=== PATIENT | male | born 1950 | race Caucasian/White ===

== ENCOUNTER 2024-07-11 21:12 | Emergency (ER) | payer MEDICARE, BC | END 2024-07-11 22:15 | disposition home or self-care (01) | LOC: LL.ED 21:12 | DX: S79.912A Unspecified injury of left hip, initial encounter (principal); E78.00 Pure hypercholesterolemia, unspecified; Z79.899 Other long term (current) drug therapy; W19.XXXA Unspecified fall, initial encounter | CPT/HCPCS: 99283 ==